=== PATIENT | female | born 1990 | race Caucasian/White ===

== ENCOUNTER 2021-12-05 06:40 | Inpatient (IN) | payer OTHER ==
[~2021-12-05] VITALS: Ht 167.6 cm; Wt 91.4 kg
[~2021-12-05 06:40] MED LIST: IBU800 M1 PO; PERCOCET 325 MG1 TA2 PO; PRENATAL TABLET PO; TYLENOL 500MG500 MG PO
[2021-12-06] VITALS (19 sets, daily range): BP systolic 81–132; BP diastolic 50–87; PULSE 70–99; TEMP 98.2–98.4
--- NOTE | 2021-12-06 09:15 | NUR ---
Pt arrived on unit ambulatory for scheduled . Pt denies any contractions, leaking of fluid or vaginal bleeding and reports normal movement. EFM and toco monitors started. Vital signs WNL. Oriented to room, bed and call light within reach. Plan of care reviewed.
[2021-12-06] MEDS ORDERED: OSCAL 500 TAB500 MG PO (09:40)
[2021-12-06 10:03] LABS: BASO % 0.4 % (0.0-2.0); EOS # 0.1 K/mm3 (0.0-0.7); EOS % 1.2 % (0.0-4.0); GRAN # 6.4 K/mm3 (1.4-6.5); GRAN % 75.1 % (42.2-75.2); LYMPH # 1.5 K/mm3 (1.2-3.4); LYMPH % 17.5 % (20.0-51.0); MEAN CELL VOLUME 83 fl (80.0-100.0); MEAN CORPUSCULAR HEMOGLOBIN 27 pg (27-31); MEAN CORPUSCULAR HGB CONC 32 g/dl (33.0-37.0); MEAN PLATELET VOLUME 10.6 fl (7.4-10.4); MONO # 0.4 K/mm3 (0.1-0.6); PLATELET COUNT 221 K/mm3 (130-400); RED BLOOD COUNT 3.74 M/mm3 (4.10-5.30); REDCELL DISTRIBUTION WIDTH-CV 14.8 % (11.5-14.5)
[2021-12-06 10:04] LABS: HEMATOCRIT 31.1 % (37.0-47.0)
--- NOTE | 2021-12-06 11:30 | NUR ---
1130: PT TO PACU FOLLOWING REPEAT DELIVERY OF VIABLE MALE PER / ASSIST AT THIS TIME. PT IN STABLE CONDITION. VITAL SIGNS STABLE. FUNDUS FIRM AT UMBILICUS. LOCHIA SCANT WITH NO CLOTS NOTED. PT DENIES PAIN. ORIENTED TO PACU AND PLAN OF CARE. DENIES FURTHER QUESTIONS OR CONCERNS. 1205: PT REMAINS IN STABLE CONDITION. FUNDUS FIRM AT UMBILICUS. SCANT LOCHIA, NO CLOTS NOTED. VITAL SIGNS STABLE. LONGORIA CATHETER DRAINING CLEAR YELLOW URINE WITH APPROPRIATE OUTPUT. LR INFUSING PER PROTOCOL. PT TO ROOM AT THIS TIME VIA BED WITH FOB AT BEDSIDE. ORIENTED TO ROOM AND PLAN OF CARE. DENIES FURTHER QUESTIONS OR CONCERNS AT THIS TIME.
--- NOTE | 2021-12-06 14:29 | NUR ---
PT TOLERATES PO DIET WELL. ATE 100% OF MEAL. DENIES NAUSEA. REPORTS SHE IS UNABLE TO FEEL ANY SENSATION YET TO BLE. DENIES PAIN. RATES PAIN 0/10 ON NUMERIC PAIN SCALE. LOCHIA REMAINS SCANT, FUNDUS REMAINS FIRM AT UMBILICUS. SHILPA CARE PROVIDED AND NEW PAD PLACED UNDER PT. LONGORIA CONTINUES TO DRAIN CLEAR YELLOW URINE WITH APPORPRIATE OUTPUT. IV TO SALINE LOCK. VITAL SIGNS STABLE. PT DOING SKIN TO SKIN WITH INFANT AT THIS TIME. DENIES NEEDS. CALL LIGHT WITHIN REACH UPON EXITING ROOM.
[2021-12-07 04:05] VITALS: BP 123/71; PULSE 74; TEMP 97.9
[2021-12-07 08:30] VITALS: BP 110/72; PULSE 79; TEMP 97.6
--- NOTE | 2021-12-07 09:29 | NUR ---
Initial visit; Parents thanked Director Of Outreach for offering congratulations and God's blessings for the of their son. Director Of Outreach thanked family for choosing [facility].
[2021-12-07 15:45] VITALS: BP 106/67; PULSE 85; TEMP 97.9
[2021-12-07 20:30] VITALS: BP 108/72; PULSE 78; TEMP 97.6
[2021-12-08] MEDS ORDERED: PERCOCET 325 MG1 TA2 PO (08:30)
[2021-12-08] MEDS ORDERED: IBU800 M1 PO (08:30)
[2021-12-08 09:30] VITALS: BP 111/65; PULSE 94; TEMP 97.6
--- NOTE | 2021-12-08 13:41 | NUR ---
1220DISCHARGE INSTRUCTIONS REVIEWED WITH PATIENT. PATIENT VERBALIZED UNDERSTANDING. PATIENT WILL NOTIFY THIS RN WHEN READY TO LEAVE. 1305ALL PERSONAL BELONGINGS GATHERED FROM PATIENT ROOM. PATIENT LEFT AMBULATORY AND IN NO APPARENT DISTRESS, ACCOMPANIED BY SPOUSE AND Juventino MACK RN.
== END 2021-12-08 13:05 | disposition home or self-care (01) | DRG 788 ==
LOC: OB
PROVIDERS: ADMIT Student in an Organized Health Care Education/Training Program
PROC: 10D00Z1 Extraction of Products of Conception, Low, Open Approach (ICD-10-PCS; principal; 2021-12-06)
DX: O34.211 Maternal care for low transverse scar from previous cesarean delivery (principal); O24.420 Gestational diabetes mellitus in childbirth, diet controlled; Z3A.39 39 weeks gestation of pregnancy; Z37.0 Single live birth; Z86.16 Personal history of COVID-19
CPT/HCPCS: J0171; J0690; J1100; J1885; J2370; J2405; J2590; J7120

== ENCOUNTER → 2024-05-26 | Outpatient (CLI) | payer OTHER ==
[~2024-05-26] MED LIST changes: +OSCAL 500 TAB500 MG PO
== END ==
LOC: COL.VAS 09:23
DX: R06.02 Shortness of breath (principal); R07.89 Other chest pain